=== PATIENT | male | born 1965 | race Caucasian/White ===

== ENCOUNTER 2018-10-01 10:23 | Emergency (ER) | payer BC ==
[2018-10-01] MEDS ORDERED: Metoclopramide 10 MG/2 ML SDV IVPUSH ONE (11:22)
[2018-10-01] MEDS ORDERED: Ketorolac 30 MG/ML SDV IVPUSH ONE (11:23)
[2018-10-01] MEDS ORDERED: Sodium Chloride 0.9% 1,000 ML IV ONE (11:23)
[2018-10-01] MEDS ORDERED: diphenhydrAMINE 50 MG/ML SDV IVPUSH ONE (11:23)
--- NOTE | 2018-10-01 11:29 | EDM.PDOC ---
ED HPI GENERAL MEDICAL PROBLEM - General Chief Complaint: Eye Problems Stated Complaint: VISION PROBLEMS Time Seen by Provider: 10/01/18 11:20 Source of Information: Reports: Patient History Limitations: Reports: No Limitations - History of Present Illness INITIAL COMMENTS - FREE TEXT/NARRATIVE: Brian is a 53 year old male presents to the ED today after losing right visual field at work, no other visual loss or complaints of unilateral weakness, on his way here, vision returned to normal and now patient has a headache on right side. Patient denies any nausea, vomiting, does endorse photophobia. Patient denies any fever/chills or recent illness. Patient reports that similar episode happened 20 years ago and he was diagnosed with a migraine headache. Patient has not had any similar events since. Onset: Today, Sudden Headache Pain Score (Numeric/FACES): 3 - Related Data Allergies Allergy/AdvReac Type Severity Reaction Status Date / Time No Known Allergies Allergy Verified 10/01/18 10:45 Home Meds: Home Meds NK [No Known Home Meds] 10/01/18 [History] Past Medical History - Infectious Disease History Infectious Disease History: Reports: Chicken Pox - Past Surgical History GI Surgical History: Reports: Cholecystectomy Musculoskeletal Surgical History: Reports: Shoulder Surgery Social & Family History - Tobacco Use Smoking Status *Q: Current Every Day Smoker Years of Tobacco use: 35 Packs/Tins Daily: 1 - Caffeine Use Caffeine Use: Reports: Coffee - Recreational Drug Use Recreational Drug Use: No ED ROS GENERAL - Review of Systems Review Of Systems: ROS reveals no pertinent complaints other than HPI. ED EXAM GENERAL W FULL EYE - Physical Exam Exam: See Below Exam Limited By: No Limitations General Appearance: Alert, WD/WN, No Apparent Distress Eye Exam: Bilateral Eye: EOMI, PERRL Conjunctiva & Sclera: Bilateral: Normal Appearance Extraocular Movements: Bilateral: Intact Pupillary Size: Bilateral: 4 mm Pupillary Reaction: Bilateral: Brisk Throat/Mouth: Normal Inspection, Normal Oropharynx Head: Atraumatic Neck: Normal Inspection Respiratory/Chest: No Respiratory Distress, Lungs Clear Cardiovascular: Normal Peripheral Pulses, Regular Rate, Rhythm, No Murmur Extremities: Normal Inspection, Normal Range of Motion Neurological: Alert, Oriented, CN II-XII Intact, Normal Gait, Normal Reflexes, No Motor/Sensory Deficits Psychiatric: Normal Affect, Normal Mood Skin Exam: Warm, Dry, Intact Lymphatic: No Adenopathy Course - Vital Signs Last Recorded V/S: Last Vital Signs Temp 36.1 C 10/01/18 10:40 Pulse 68 10/01/18 11:44 Resp 16 10/01/18 11:44 BP 126/86 10/01/18 11:44 Pulse Ox 99 10/01/18 11:44 Brian is an otherwise healthy 53 year old male who presents to the ED today with right sided headache which started after having a right sided visual loss. Vision has returned to baseline by the time patient arrived here. patient on exam is alert and oriented, no neuro focal deficits, likely atypical migraine. Patient was given IV fluids, reglan, benadryl, and toradol with resolution of his headache. CT scan obtained to rule out any acute intracranial pathology and is negative. Patient reports he is feeling much better, discussed atypical migraines as well as migraine with aura. Recommend PCP follow up for further episodes as well as reasons to return to the ED. Patient is agreeable to plan of care and was discharged in stable condition with his friend driving. - Orders/Labs/Meds Meds: Medications Discontinued Medications Generic Name Dose Route Start Last Admin Trade Name Sree PRN Reason Stop Dose Admin Diphenhydramine HCl 25 mg 10/01/18 11:23 10/01/18 11:34 Benadryl IVPUSH 10/01/18 11:24 25 mg ONETIME ONE Administration Sodium Chloride 1,000 mls @ 999 mls/hr 10/01/18 11:23 10/01/18 11:34 Normal Saline IV 10/01/18 12:23 999 mls/hr .BOLUS ONE Administration Ketorolac Tromethamine 30 mg 10/01/18 11:23 10/01/18 11:34 Toradol IVPUSH 10/01/18 11:24 30 mg ONETIME ONE Administration Metoclopramide HCl 5 mg 10/01/18 11:22 10/01/18 11:34 Reglan IVPUSH 10/01/18 11:23 5 mg ONETIME ONE Administration Departure - Departure Time of Disposition: 14:00 Disposition: Home, Self-Care 01 Condition: Good Clinical Impression: Atypical migraine - Discharge Information Instructions: Migraine Headache, [id number] Referrals: PCP,None [Primary Care Provider] - Forms: ED Department Discharge
--- NOTE | 2018-10-01 13:17 | CT ---
Head wo Cont CLINICAL HISTORY: Visual changes, headache COMPARISON: None TECHNIQUE: Transverse scans were obtained from the base of the skull through the vertex without IV contrast on a multislice, multidetector CT scanner. Auto dosage reduction and iterative reconstruction techniques employed. FINDINGS: No focal abnormal parenchymal density is identified. There is no mass effect, hemorrhage, or extraaxial collection. The basal cisterns and sulci over the convexities are normal. The ventricles are normal for age. IMPRESSION: No evidence of hemorrhage mass effect or extra-axial collection
== END 2018-10-01 13:47 | disposition home or self-care (01) ==
LOC: JP.ED 10:23
DX: G43.809 Other migraine, not intractable, without status migrainosus (principal); F17.210 Nicotine dependence, cigarettes, uncomplicated; Z90.49 Acquired absence of other specified parts of digestive tract
CPT/HCPCS: 70450; 96361; 96374; 96375; 99284; J1200; J1885; J2765; J7030